=== PATIENT | female | born 1965 | race Caucasian/White ===

== ENCOUNTER 2016-09-24 14:17 | Emergency (ER) | payer OTHER ==
[2016-09-24 16:04] VITALS: BP 140/87
--- NOTE | 2016-09-24 16:22 | UC ---
Respiratory Complaint HPI - HPI Summary HPI Summary: pt presents with c/o nasal congestion, productive cough, SOB with exertion, sinus pressure, and left tear discomfort X 2 days. Pt states that she is exhausted and is unable to sleep due to coughing at night. - History of Current Complaint Chief Complaint: UCGeneralIllness Stated Complaint: COUGH,CONGESTION Time Seen by Provider: 09/24/16 15:52 Hx Obtained From: Patient ?: No Onset/Duration: Sudden Onset, Lasting Days Timing: Constant Severity Initially: Mild Severity Currently: Moderate Character: Sputum Description: - yellow/green Aggravating Factors: Exertion, Deep Breaths, Recumbent Position Alleviating Factors: Nothing Associated Signs And Symptoms: Positive: Chills, URI, Nasal Congestion - Allergies/Home Medications Allergies/Adverse Reactions: Allergies Allergy/AdvReac Type Severity Reaction Status Date / Time Azithromycin Allergy Intermediate Rash Verified 09/24/16 16:05 [From Zithromax Z-Armen] Penicillins Allergy Rash Verified 01/31/15 13:51 Home Medications: Home Medications Amlodipine Besylate-Atorvastat [Amlodipine Besylate/Atorv 2.5-40-] 1 PO DAILY [History] Cetirizine-Pseudoephedrine [Allergy D-12 5-120 mg] PO 09/24/16 [History] PMH/Surg Hx/FS Hx/Imm Hx Previously Healthy: Yes Cardiovascular History Of: Reports: Hypertension - Surgical History Surgical History: Yes Surgery Procedure, Year, and Place: Right hip replacement, R hip replacement revision 2013, partial thyroidectomy - Family History Known Family History: Positive: Other - positive [facility] for URI - Social History Lives: With Family Alcohol Use: None Substance Use Type: None Smoking Status (MU): Former Smoker - Immunization History Most Recent Influenza Vaccination: 2016 Review of Systems Constitutional: Chills, Fatigue Skin: Negative Eyes: Negative ENT: Ear Ache, Other - nasal congestion Respiratory: Cough Cardiovascular: Negative Gastrointestinal: Negative Genitourinary: Negative Motor: Negative Neurovascular: Negative Musculoskeletal: Myalgia Neurological: Negative Psychological: Negative All Other Systems Reviewed And Are Negative: Yes Physical Exam Triage Information Reviewed: Yes Appearance: Ill-Appearing Vital Signs: Initial Vital Signs Temp 97.7 F 09/24/16 15:56 Pulse 103 09/24/16 15:56 Resp 18 09/24/16 15:56 BP 140/87 04/30/17 15:56 Pulse Ox 99 09/24/16 15:56 Vital Signs Reviewed: Yes Eye Exam: Normal ENT Exam: Other ENT: Positive: Nasal congestion, TM bulging Neck exam: Normal Respiratory Exam: Other Respiratory: Positive: Decreased breath sounds - bilateral bases Cardiovascular Exam: Normal Musculoskeletal Exam: Normal Neurological Exam: Normal Psychological Exam: Normal Skin Exam: Normal UC Diagnostic Evaluation - Laboratory O2 Sat by Pulse Oximetry: 99 Respiratory Course/Dx - Differential Dx/Diagnosis Differential Diagnosis/HQI/PQRI: Bronchitis, Sinusitis, Other - allergic rhinitis Provider Diagnoses: bronchitis. allergic rhinitis Discharge - Discharge Plan Condition: Stable Disposition: HOME Prescriptions: Benzonatate CAP* [Tessalon 100 MG CAP*] 100 mg PO TID PRN #24 cap PRN Reason: Cough DOXYcycline CAP(*) [DOXYcycline 100MG CAP(*)] 100 mg PO BID #14 cap Fluticasone NASAL * [Flonase *] 2 spray BOTH NARES DAILY #1 bottle Patient Education Materials: Acute Bronchitis (ED), Allergic Rhinitis (ED) Referrals: Altaf Jones [Primary Care Provider] - If Needed (Please follow up with your PCP or return to clinic as needed) Additional Instructions: Please follow up with your PCP or return to clinic as needed.
== END 2016-09-24 16:35 | disposition home or self-care (01) ==
LOC: UCCORT 14:17
DX: J30.9 Allergic rhinitis, unspecified (principal); J40 Bronchitis, not specified as acute or chronic; Z88.1 Allergy status to other antibiotic agents; Z88.0 Allergy status to penicillin
CPT/HCPCS: 99211; G0463

== ENCOUNTER 2018-03-10 13:43 | Emergency (ER) | payer OTHER ==
[2018-03-10 15:35] VITALS: BP 154/90
[2018-03-10] MEDS ORDERED: Albuterol/Ipratropium NEB.SOL* Albuterol 2.5 MG/Ipratropium 0.5 MG 3 ML INH ONE (15:58)
[2018-03-10] MEDS ORDERED: predniSONE TAB* 20 MG PO ONE (15:59)
--- NOTE | 2018-03-10 16:40 | UC ---
Respiratory Complaint HPI - HPI Summary HPI Summary: patient takes immune succession medication for colitis---she has had symptoms of bronchitis for 10-14 days seen pcp and rx Doxycyline---that made her nauseated and could no tolerate the medications felt like she was getting a little better than worsened for the past 2-3 days---- - History of Current Complaint Chief Complaint: UCRespiratory Stated Complaint: CONGESTION COUGH SNEEZING HEADACHE Time Seen by Provider: 03/10/18 15:44 Hx Obtained From: Patient ?: No Onset/Duration: Gradual Onset, Lasting Days, Still Present Timing: Constant Severity Initially: Moderate Severity Currently: Moderate Character: Cough: Productive Aggravating Factors: Exertion, Deep Breaths, Recumbent Position Alleviating Factors: Nothing Associated Signs And Symptoms: Positive: Chills, Pleuritic Chest Pain, Nasal Congestion - Allergies/Home Medications Allergies/Adverse Reactions: Allergies Allergy/AdvReac Type Severity Reaction Status Date / Time azithromycin Allergy Intermediate Rash Verified 03/10/18 15:26 Penicillins Allergy Intermediate Rash Verified 03/10/18 15:26 Home Medications: Home Medications Mesalamine [Asacol Hd] 2 tab TID 03/10/18 [History Confirmed 03/10/18] amLODIPine TAB* [Norvasc 5 mg TAB*] 2.5 mg QPM 03/10/18 [History Confirmed 03/10] PMH/Surg Hx/FS Hx/Imm Hx Previously Healthy: No Cardiovascular History: Hypertension GI/ History: Other Other GI/ History: chronic colitis - Surgical History Surgical History: Yes Surgery Procedure, Year, and Place: Right hip replacement, R hip replacement revision 2014, partial thyroidectomy - Family History Known Family History: Positive: None, Other - positive [facility] for URI - Social History Occupation: Disabled Lives: With Family Alcohol Use: None Substance Use Type: None Smoking Status (MU): Former Smoker Have You Smoked in the Last Year: No When Did the Patient Quit Smoking/Using Tobacco: 8-9 years ago - Immunization History Most Recent Influenza Vaccination: 2016 Review of Systems Constitutional: Chills, Fatigue Skin: Negative Eyes: Negative ENT: Nasal Discharge, Sinus Congestion Respiratory: Cough Cardiovascular: Negative Gastrointestinal: Negative Genitourinary: Negative Motor: Negative Neurovascular: Negative Musculoskeletal: Negative Neurological: Negative Psychological: Negative Is Patient Immunocompromised?: No All Other Systems Reviewed And Are Negative: Yes Physical Exam Triage Information Reviewed: Yes Appearance: Well-Nourished, Ill-Appearing - mild-, Pain Distress - mild Vital Signs: Initial Vital Signs Temp 99.2 F 03/10/18 15:32 Pulse 89 03/10/18 15:32 Resp 18 03/10/18 15:32 BP 154/90 03/10/18 15:32 Pulse Ox 100 03/10/18 15:32 Vital Signs Reviewed: Yes Eye Exam: Normal Eyes: Positive: Conjunctiva Clear ENT Exam: Normal ENT: Positive: Normal ENT inspection, Hearing grossly normal, Nasal congestion, TMs normal, Uvula midline. Negative: Tonsillar swelling, Trismus, Muffled voice , Hoarse voice, Dental tenderness, Sinus tenderness Dental Exam: Normal Neck exam: Normal Neck: Positive: Supple, Nontender, No Lymphadenopathy Respiratory Exam: Normal Respiratory: Positive: Chest non-tender, Lungs clear, Normal breath sounds, No respiratory distress, No accessory muscle use Cardiovascular Exam: Normal Cardiovascular: Positive: RRR, No Murmur, Pulses Normal, Brisk Capillary Refill Musculoskeletal Exam: Normal Musculoskeletal: Positive: Strength Intact, ROM Intact, No Edema Neurological Exam: Normal Neurological: Positive: Alert, Muscle Tone Normal Psychological Exam: Normal Skin Exam: Normal UC Diagnostic Evaluation - Laboratory O2 Sat by Pulse Oximetry: 100 Respiratory Course/Dx - Course Course Of Treatment: prednisone, albuterol, levoquin (patient understands the black box warnings--she has taken it prior) increase fluids follow infection and elevated blood pressure with pcp in 2 weeks - Differential Dx/Diagnosis Provider Diagnoses: acute bronchitis in immune suppressed patient, hypertension in poor control Discharge - Sign-Out/Discharge Documenting (check all that apply): Patient Departure All imaging exams completed and their final reports reviewed: No Studies - Discharge Plan Condition: Stable Disposition: HOME Prescriptions: Albuterol 2.5MG/3ML (0.083%)* [Ventolin 2.5 MG/3 ML NEB.ADRIAN*] 2.5 mg INH Q4H PRN #1 box PRN Reason: cough, chest congestion Levofloxacin TAB* [Levaquin TAB*] 500 mg PO DAILY #7 tab predniSONE [Prednisone 20 MG TAB] 20 mg PO DAILY #9 tablet Patient Education Materials: Acute Bronchitis (ED), How to Use a Nebulizer (ED) , Hypertension (ED) Referrals: Altaf Jones [Primary Care Provider] - 2 Weeks - Billing Disposition and Condition Condition: STABLE Disposition: Home
== END 2018-03-10 16:47 | disposition home or self-care (01) ==
LOC: UCCORT 13:43
DX: J20.9 Acute bronchitis, unspecified (principal); D89.9 Disorder involving the immune mechanism, unspecified; I10 Essential (primary) hypertension; Z88.0 Allergy status to penicillin; Z88.1 Allergy status to other antibiotic agents; Z87.891 Personal history of nicotine dependence
CPT/HCPCS: 99212; A9270-GY; G0463; J7512

== ENCOUNTER 2018-05-26 11:48 | Emergency (ER) | payer OTHER ==
--- OUTSIDE RECORDS SUMMARY | 2018-05-26 12:59 | XMS REPORT ---
:1965 External Reference #:[id number] Author Organization [facility] Address [address], [address] [place] [address] Phone [phone] Care Team Providers Name Role Phone Severino Rosales NP Care Team Information Flare Stitcher Unavailable Severino oRsales NP Primary Care Physician Unavailable Payers Type Date Identification Numbers Payment Provider Subscriber Commercial Effective: Policy Number: [id number] [place] Medicaid Vicki Cain 2008 Reina PayID: [id number] [address] [address] [place] [address] Problems Date Description Provider Status Onset: 03/10/2013 Pure hypercholesterolemia Warren Bourne MD, PhD Active Onset: 01/25/2015 Adult health examination Kathryn Santoyo PA-C Active Note: [place] Onset: 01/25/2015 Ulcerative colitis Kathryn Sanotyo PA-C Active Note: since 1997; colonoscopy to cecum November 2014 bx badly tolerated with conscious sedation; internal and external hemorrhoids Onset: 01/25/2015 Irritable bowel syndrome Kathryn Santoyo PA-C Active Note: /D. Onset: 01/25/2015 Gastroesophageal reflux disease Kathryn Santoyo PA-C Active Note: upper endo 5 cm beyond Treitz, Bx 2011 Onset: 01/25/2015 Diverticular disease of colon Kathryn Santoyo PA-C Active Onset: 01/25/2015 Hyperlipidemia Kathryn Santoyo PA-C Active Onset: 01/25/2015 Degenerative joint disease Kathryn Santoyo PA-C Active involving multiple joints Onset: 01/25/2015 Obesity Kathryn Santoyo PA-C Active Onset: 01/26/2016 Benign essential hypertension Roger Villafana MD Active Onset: 08/04/2016 Other sleep disorders Esha Wild, Active MSN, [employer] Onset: 08/04/2016 Mitral valve disorder WildEsha mcdermott, Active MSN, [employer] Onset: 08/04/2016 Paroxysmal supraventricular Esha Wild, Active tachycardia MSN, [employer] Family History Date Family Member(s) Problem(s) Comments General Hypertension Mother General Atrial Fibrillation Mother Father due to Many health () - sepsis issues from surgery/bone problems Father Cancer Bone Mother Atrial Fibrillation First Brother due to Testicular () Cancer Onset: (age 26 First Brother Testicular Cancer Years) Grandfather Cancer bone Grandmother due to Colon () Cancer Grandmother Colon Cancer age 60 Social History Type Date Description Comments Marital Status Lives With Spouse Home Environment Ambulates With Cane Diet Patient follows no dietary restrictions Occupation Disabled Work Status Disabled ADL's/IADL's Independent with all ADL's Drive Patient does not drive Cigarette Use 2009 Quit ETOH Use Denies alcohol use Smoking Patient is a former smoker Recreational Drug Use Denies Drug Use Daily Caffeine Current Caffeine User Daily Caffeine Consumes on average 2 cups of hot tea per day Allergies, Adverse Reactions, Alerts Date Description Reaction Status Severity Comments 08/23/2011 Penicillins active 05/02/2013 Nabumetone active itching rash 01/27/2016 Azithromycin active itching Medications Medication Date Status Form Strength Qnty SIG Indications Ordering Provider Azathioprine 01/02/ Active Tablets 50mg 360tab 4 tabs by I10 Ledy 2016 s mouth once , nydia Duran MD Asacol HD 03/30/ Active Tablets DR 800mg 180tab take 2 Ledy 2014 s tablets by Roger mouth MD three times a day One Daily 00/00/ Active Tablets 50+ 1 po daily Unknown Womens 50+ 0000 Amlodipine / Active Tablets 2.5mg 90tabs 1 by mouth Neetu Keyes 0000 every MD Luis evening Ibuprofen / Active Tablets 600mg 1 po every Rosales, 0000 6 hrs prn XU Haq Fiber-Lax / Active Tablets 625mg 30tabs 1 by mouth Ledy 0000 every day , MD Roger Sulfamethoxazol / Active Tablets 800-160mg 1 po bid x Rosales, e/Trimethoprim 0000 10 days XU Haq DS Claritin / Active Capsules 10mg 1 by mouth Unknown 0000 twice a day Apriso 06/26/ Hx Caps ER 0.375gm 120cap 4 cap by Ledy 2018 24HR s mouth Roger every day every morning Omeprazole 01/02/ Hx Capsules 20mg 30caps 1 by mouth K21.9 Ledy 2016 every day Roger MD Mesalamine 01/02/ Hx Tablets DR 800mg 180tab 2 tablets I10 Ledy 2016 s 3 times Roger cain day MD Dulcolax 01/02/ Hx Tablets DR 5mg 4tabs 4 tablets Ledy 2016 taken a Roger 8pm the MD day before the procedure Citroma 01/02/ Hx Solution 1.745GM/30 296ml drink 1 Ledy 2017 ML bottle at Roger 12pm (noon)the day before the procedure Peg-3350/Electr 01/26/ Hx Solution 236gm 4000ml drink half I10 Ledy olytes 2015 Rec bottle 4pm , Roger half bottle 4am Omeprazole / Hx Capsules 40mg 90caps 1 by mouth Ledy Mackey DR every day Roger 01/02/ 2016 Omeprazole 01/26/ Hx Capsules 20mg 180cap 1 PO twice Abran Avilez DR s a day Jt / (before a 2015 meal) Fiber 01/26/ Hx Tablets 625mg 90tabs 1 PO daily Abran Avilez MD Omeprazole 01/05/ Hx Capsules 20mg 30caps once a day Abran Avilez DR (before a Jt meal) 2014 Nabumetone 04/18/ Hx Tablets 750mg 60tabs take 1 Evelio, 2012 - tablet by Audi Ramirez, 05/02/ mouth 2 , MAGDALENE 2013 times a day with food Amitriptyline / Hx Tablets 10mg 1 po qd Unknown HCL 2012 Multivitamins / Hx Tablets 1 po qd Unknown 2012 Sulfasalazine / Hx Tablets 500mg 1 po tid Unknown 2012 Meloxicam / Hx Tablets 15mg 1 po qd Unknown 2012 Omeprazole / Hx Capsules 20mg 30caps 1 cap po Natanael, 0000 - DR qd Kathryn 01/05/ Yadira 2014 PA-C Fiber-Lax / Hx Tablets 625mg 2 po qd Unknown - 2014 Daily Adam / Hx Tablets Unknown 0000 Cetirizine HCL / Hx Tablets 10mg 1 po qd Unknown - 2014 Asacol HD / Hx Tablets DR 800mg 180tab 2 tabs by Raghav 0000 - s mouth Jt, 03/30/ every day MD Osullivan Allergy / Hx Tablets 10mg 1 tab po Unknown 0000 qd Claritin / Hx Tablets 5-120mg 1 by mouth Unknown 0000 twice a day Azathioprine / Hx Tablets 50mg 360tab 4 tabs by Ledy 0000 s mouth once , Roger, daily Zyrtec Allergy / Hx Tablets 10mg 1 tab by Unknown D 0000 - mouth bid 2017 Vital Signs Date Vital Result Comment 04/30/2018 BP Systolic Sitting Left Arm 144 mmHg BP Diastolic Sitting Left Arm 88 mmHg Heart Rate 100 /min Respiratory Rate 18 /min Height 67 inches 5'7" Weight 180.00 lb BMI (Body Mass Index) 28.2 kg/m2 BSA (Body Surface Area) 1.93 m2 Oden body weight in kilograms 61 11/14/2017 BP Systolic Sitting Right Arm 128 mmHg BP Diastolic Sitting Right Arm 70 mmHg BP Systolic Sitting Left Arm 124 mmHg BP Diastolic Sitting Left Arm 68 mmHg Heart Rate 93 /min Respiratory Rate 16 /min Height 67 inches 5'7" Weight 180.00 lb BMI (Body Mass Index) 28.2 kg/m2 BSA (Body Surface Area) 1.93 m2 Oden body weight in kilograms 61 O2 % BldC Oximetry 97 % Room air 02/26/2017 BP Systolic Sitting Left Arm 146 mmHg BP Diastolic Sitting Left Arm 102 mmHg Heart Rate 72 /min Respiratory Rate 16 /min Height 67 inches 5'7" Weight 180.00 lb BMI (Body Mass Index) 28.2 kg/m2 BSA (Body Surface Area) 1.93 m2 Oden body weight in kilograms 61 02/20/2017 BP Systolic Sitting Left Arm 130 mmHg BP Diastolic Sitting Left Arm 86 mmHg Heart Rate 104 /min Respiratory Rate 16 /min Height 67 inches 5'7" Weight 180.00 lb BMI (Body Mass Index) 28.2 kg/m2 BSA (Body Surface Area) 1.93 m2 Oden body weight in kilograms 61 01/02/2017 BP Systolic Sitting Left Arm 140 mmHg BP Diastolic Sitting Left Arm 70 mmHg Heart Rate 100 /min Respiratory Rate 16 /min Height 67 inches 5'7" Weight 182.00 lb BMI (Body Mass Index) 28.5 kg/m2 BSA (Body Surface Area) 1.94 m2 Oden body weight in kilograms 61 08/04/2016 BP Systolic Sitting Right Arm 128 mmHg BP Diastolic Sitting Right Arm 78 mmHg Heart Rate 80 /min Respiratory Rate 16 /min Height 67 inches 5'7" Weight 179.00 lb BMI (Body Mass Index) 28.0 kg/m2 BSA (Body Surface Area) 1.93 m2 06/14/2016 BP Systolic Sitting Right Arm 150 mmHg BP Diastolic Sitting Right Arm 98 mmHg Heart Rate 81 /min Height 67 inches 5'7" Weight 181.00 lb BMI (Body Mass Index) 28.3 kg/m2 BSA (Body Surface Area) 1.94 m2 01/27/2016 BP Systolic 176 mmHg BP Diastolic 102 mmHg Heart Rate 80 /min Height 67 inches 5'7" Weight 178.00 lb BMI (Body Mass Index) 27.9 kg/m2 BSA (Body Surface Area) 1.92 m2 01/26/2015 BP Systolic 132 mmHg BP Diastolic 86 mmHg Heart Rate 68 /min Height 67 inches 5'7" Weight 196.00 lb BMI (Body Mass Index) 30.7 kg/m2 BSA (Body Surface Area) 2.00 m2 05/02/2013 BP Systolic Sitting Left Arm 138 mmHg BP Diastolic Sitting Left Arm 100 mmHg Height 67 inches 5'7" Weight 207.00 lb BMI (Body Mass Index) 32.4 kg/m2 BSA (Body Surface Area) 2.05 m2 03/13/2013 BP Systolic Sitting Right Arm 142 mmHg BP Diastolic Sitting Right Arm 98 mmHg Heart Rate 88 /min Respiratory Rate 16 /min Height 66 inches 5'6" Weight 211.00 lb BMI (Body Mass Index) 34.1 kg/m2 BSA (Body Surface Area) 2.05 m2 09/06/2011 BP Systolic Sitting Right Arm 152 mmHg BP Diastolic Sitting Right Arm 99 mmHg Heart Rate 101 /min Respiratory Rate 22 /min Height 66 inches 5'6" Weight 210.00 lb BMI (Body Mass Index) 33.9 kg/m2 Results Test Date Test Result H/L Range Note CBC W/Automated Diff 04/22/2018 White Blood Count 3.6 K/uL 3.1-10.7 1 Red Blood Count 4.35 M/uL 3.90-5.40 1 Hemoglobin 14.0 gm/dL 11.6-15.8 1 Hematocrit 42.9 % 36.0-46.1 1 Mean Cell Volume 98.6 fl 80.9-99.0 1 Mean Corpuscular HGB 32.2 pg 25.9-32.7 1 Mean Corpuscular HGB Conc 32.6 g/dL 30.8-34.3 1 Platelet Count 327 K/uL 155-360 1 Red Cell Distri Width SD 48.9 fl High 3-47 1 Red Cell Distri Width %CV 13.8 % 11.7-14.4 1 Mean Platelet Volume 10.2 fL 8.9-12.4 1 Neut% 68.0 % 40.4-72.8 1 Lymph % 18.3 % Low 20.0-42.0 1 [place] % 9.0 % 4.3-13.2 1 Eo% 3.9 % 0.0-6.6 1 Bas% 0.8 % 0.0-1.1 1 Neut# 2.42 K/uL 1.8-7.0 1 Lymph # 0.65 K/uL Low 1.0-4.0 1 [place] # 0.32 K/uL 0.3-0.9 1 Eos # 0.14 K/uL 0.0-0.5 1 Baso # 0.03 K/uL 0.0-0.1 1 Comprehensive Metabolic Panel 04/22/2018 Glucose 95 mg/dL 74-106 1 BUN 12 mg/dL 7-18 1 Creatinine 0.8 mg/dL 0.6-1.3 1 Glom Filtration Rate, Estimate >60 mL/min >60 1 If >60 mL/min >60 1, 2 BUN/Creat 15.0 ratio 1 Sodium 139 mmol/L 136-145 1 Potassium 3.8 mmol/L 3.5-5.1 1 Chloride 103 mmol/L 98-107 1 Carbon Dioxide 31 mmol/L 21-32 1 Anion Gap 5 mEq/L Low 8-16 1 Calcium 9.3 mg/dL 8.5-10.1 1 Total Protein 8.2 g/dL 6.4-8.2 1 Albumin 3.6 g/dL 3.4-5.0 1 Globulin 4.6 g/dL High 1.9-4.3 1 Alb/Glob 0.8 ratio 1 Bilirubin,Total 0.5 mg/dL 0.2-1.0 1 Sgot/Ast 17 U/L 15-37 1 SGPT/Alt 21 U/L 12-78 1 Alkaline Phosphatase 82 U/L 45-117 1 Laboratory test finding 04/22/2018 Lipase 127 U/L 56-289 1 Laboratory test finding 09/21/2017 Lipase 116 U/L 56-289 3 Amylase 55 U/L 25-115 3 Laboratory test finding 02/23/2017 Thyroid Stim Hormone 2.61 uIU/mL 0.30- 4.20 4 Free T4 1.08 ng/dL 0.76-1.46 4 Laboratory test finding 02/23/2017 [facility] IBD sgi (SEE NOTE) 5 Diagnostic Laboratory test finding 01/04/2017 Calprotectin, Fecal 18 ug/g 0-120 6, 7 Laboratory test finding 01/02/2017 Sedimentation Rate 29 mm/hr 0-30 6, 8 C-Reactive Protein,Cardiac 1.61 mg/L <3.0 6 Calprotectin, Fecal <pending> 6 Amylase 67 U/L 25-115 6 Lipase 166 U/L 73-393 6 Inflammatory Bowel Disease 01/02/2017 Atypical pANCA <1:20 titer Neg:<1: 20 6, 9 Saccharomyces cerevisiae, IgG < 20.0 units 0.0-24.9 6, 10 Saccharomyces cerevisiae, IgA < 20.0 units 0.0-24.9 6, 11 Nocturnal Oximetry 06/20/2016 Low Oximetry 77 % Low 93-98 12 Fio2 21 21-100 12 Heart Rate 96 BPM 12 Duration Of Study 378 MINUTES 12 Total Time Below 88% 33.5 MINUTES 12 Continuous Oximetry 06/19/2016 Oximetry 96 % 93-98 12 Fio2 21 21-100 12 Heart Rate 100 BPM 12 Patient Status RESTING 12 CMP Panel (14 Test) 01/28/2016 Glucose 88 mg/dL 74-106 13 BUN 12 mg/dL 7-18 13 Creatinine 0.7 mg/dL 0.6-1.3 13 Glom Filtration Rate, Estimate >60 mL/min >60 13 If >60 mL/min >60 13, 14 BUN/Creat 17.1 ratio 13 Sodium 139 mmol/L 136-145 13 Potassium 3.7 mmol/L 3.5-5.1 13 Chloride 106 mmol/L 98-107 13 Carbon Dioxide 27 mmol/L 21-32 13 Anion Gap 6 mEq/L Low 8-16 13 Calcium 9.0 mg/dL 8.5-10.1 13 Total Protein 7.6 g/dL 6.4-8.2 13 Albumin 3.7 g/dL 3.4-5.0 13 Globulin 3.9 g/dL 1.9-4.3 13 Alb/Glob 0.9 ratio 13 Bilirubin,Total 0.4 mg/dL 0.2-1.0 13 Sgot/Ast 16 U/L 15-37 13 SGPT/Alt 17 U/L 12-78 13 Alkaline Phosphatase 75 U/L 45-117 13 @[facility] Pat Id: [id number] 13 @[facility] Req #: [id number] 13 Is Patient Fasting? Non-Fasting 13 CBC W/Auto Diff & PLT 01/28/2016 White Blood Count 3.9 K/uL 3.1-10.7 13 Red Blood Count 4.09 M/uL 3.90-5.40 13 Hemoglobin 13.4 gm/dL 11.6-15.8 13 Hematocrit 39.5 % 36.0-46.1 13 Mean Cell Volume 96.6 fl 80.9-99.0 13 Mean Corpuscular HGB 32.8 pg High 25.9-32.7 13 Mean Corpuscular HGB Conc 33.9 g/dL 30.8-34.3 13 Platelet Count 248 K/uL 155-360 13 Red Cell Distri Width SD 48.0 fl High 3-47 13 Red Cell Distri Width %CV 14.0 % 11.7-14.4 13 Mean Platelet Volume 10.8 fL 8.9-12.4 13 Neut% 61.1 % 40.4-72.8 13 Lymph % 20.1 % 17.0-46.1 13 [place] % 9.3 % 4.3-13.2 13 Eo% 8.5 % High 0.0-6.6 13 Bas% 1.0 % 0.0-1.1 13 Neut# 2.38 K/uL 1.8-7.0 13 Lymph # 0.78 K/uL Low 1.8-7.0 13 [place] # 0.36 K/uL 0.3-0.9 13 Eos # 0.33 K/uL 0.0-0.5 13 Baso # 0.04 K/uL 0.0-0.1 13 @[facility] Pat Id: [id number] 13 @[facility] Req #: [id number] 13 Amylase 01/28/2016 Amylase 64 U/L 25-115 13 @[facility] Pat Id: [id number] 13 @[facility] Req #: [id number] 13 Is Patient Fasting? Non-Fasting 13 Lipase 01/28/2016 Lipase 136 U/L 73-393 13 @[facility] Pat Id: [id number] 13 @[facility] Req #: [id number] 13 Is Patient Fasting? Non-Fasting 13 Antineutrophil Cytoplasmic 01/28/2016 Cytoplasmic (C-Anca) <1:20 titer Neg:<1:20 13 AB Perinuclear (P-Anca) <1:20 titer Neg:<1:20 13, 15 Atypical pANCA <1:20 titer Neg:<1:20 13, 16 @[facility] Pat Id: [id number] 13 @[facility] Req #: [id number] 13 Saccharomyces 01/28/2016 Saccharomyces < 20.0 units 0.0-24.9 13, 17 Cerevisiae Panel cerevisiae, IgG Saccharomyces cerevisiae, IgA < 20.0 units 0.0-24.9 13, 18 @[facility] Pat Id: [id number] 13 @[facility] Req #: [id number] 13 CBS W/Automated Diff 03/22/2015 White Blood Count 3.7 K/uL 3.1-10.7 Red Blood Count 4.06 M/uL 3.90-5.40 Hemoglobin 13.5 gm/dL 11.6-15.8 Hematocrit 39.4 % 36.0-46.1 Mean Cell Volume 97.0 fl 80.9-99.0 Mean Corpuscular HGB 33.3 pg High 25.9-32.7 Mean Corpuscular HGB Conc 34.3 g/dL 30.8-34.3 Platelet Count 257 K/uL 155-360 Red Cell Distri Width SD 46.5 fl 3-47 Red Cell Distri Width %CV 13.6 % 11.7-14.4 Mean Platelet Volume 10.9 fL 8.9-12.4 Neut% 56.6 % 40.4-72.8 Lymph % 22.5 % 17.0-46.1 [place] % 8.4 % 4.3-13.2 Eo% 11.1 % High 0.0-6.6 Bas% 1.4 % High 0.0-1.1 Neut# 2.09 K/uL 1.0-7.0 Lymph # 0.83 K/uL Low 1.8-7.0 [place] # 0.31 K/uL 0.3-0.9 Eos # 0.41 K/uL 0.0-0.5 Baso # 0.05 K/uL 0.0-0.1 Comprehensive Metabolic Panel 03/22/2015 Glucose 97 mg/dL 74-106 BUN 12 mg/dL 7-18 Creatinine 0.7 mg/dL 0.6-1.3 Glom Filtration Rate, Estimate >60 mL/min >60 If >60 mL/min >60 19 BUN/Creat 17.1 ratio Sodium 139 mmol/L 136-145 Potassium 3.6 mmol/L 3.5-5.1 Chloride 104 mmol/L 98-107 Carbon Dioxide 29 mmol/L 21-32 Anion Gap 6 mEq/L Low 8-16 Calcium 9.6 mg/dL 8.5-10.1 Total Protein 7.6 g/dL 6.4-8.2 Albumin 3.8 g/dL 3.4-5.0 Globulin 3.8 g/dL 1.9-4.3 Alb/Glob 1.0 ratio Bilirubin,Total 0.4 mg/dL 0.2-1.0 Sgot/Ast 18 U/L 15-37 SGPT/Alt 25 U/L 12-78 Alkaline Phosphatase 84 U/L 45-117 Comprehensive Metabolic Panel 01/05/2015 Glucose 100 mg/dL 74-106 BUN 8 mg/dL 7-18 Creatinine 0.7 mg/dL 0.6-1.3 Glom Filtration Rate, Estimate >60 mL/min >60 If >60 mL/min >60 20 BUN/Creat 11.4 ratio Sodium 140 mmol/L 136-145 Potassium 3.6 mmol/L 3.5-5.1 Chloride 106 mmol/L 98-107 Carbon Dioxide 31 mmol/L 21-32 Anion Gap 3 mEq/L Low 8-16 Calcium 9.2 mg/dL 8.5-10.1 Total Protein 7.3 g/dL 6.4-8.2 Albumin 3.4 g/dL 3.4-5.0 Globulin 3.9 g/dL 1.9-4.3 Alb/Glob 0.9 ratio Bilirubin,Total 0.4 mg/dL 0.2-1.0 Sgot/Ast 17 U/L 15-37 SGPT/Alt 24 U/L 12-78 Alkaline Phosphatase 74 U/L 45-117 CBC 12/30/2014 White Blood Count 3.9 K/uL 3.1-10.7 Red Blood Count 4.10 M/uL 3.90-5.40 Hemoglobin 13.4 gm/dL 11.6-15.8 Hematocrit 38.9 % 36.0-46.1 Mean Cell Volume 94.9 fl 80.9-99.0 Mean Corpuscular HGB 32.7 pg 25.9-32.7 Mean Corpuscular HGB Conc 34.4 g/dL High 30.8-34.3 Platelet Count 239 K/uL 155-360 Red Cell Distri Width %CV 13.4 % 11.7-14.4 Mean Platelet Volume 11.0 fL 8.9-12.4 Laboratory test finding 12/30/2014 Comprehensive Metabolic Canceled By Lab 21 Panel 1 SCREENING,K51.9O 2 Note: Persistent reduction for 3 months or more in an eGFR <60 mL/min/1.73 m2 defines CKD. Patients with eGFR values >/=60 mL/min/1.73 m2 may also have CKD if evidence of persistent proteinuria is present. The original MDRD equation for estimated GFR is not valid for patients less than 18 years of age. Additional information may be found at www.kdoqi.org. 3 K51.90 4 K51.90, E04.1, E07.9 5 MANUAL REPORT RECEIVED 03/09/17 Performed at: [facility] [id number] Forepart Rounder: Jessica Alfaro MD, Phone: [phone] 6 M64.90 7 Concentration Interpretation Follow-Up <16 - 50 ug/g Normal None >50 -120 ug/g Borderline Re-evaluate in 4-6 weeks >120 ug/g Abnormal Repeat as clinically indicated Performed at: [address] [id number] Forepart Rounder: Regan Aragon MD, Phone: [phone] 8 Method: Sediplast Modified Westergren 9 The atypical pANCA pattern has been observed in a significant percentage of patients with ulcerative colitis, primary sclerosing cholangitis and autoimmune hepatitis. ASCA+/PANCA- Suggestive of Crohn's disease ASCA-/PANCA+ Suggestive of Ulcerative colitis 10 Negative <20.0 Equivocal 20.1 - 24.9 Positive >or=25.0 11 Negative <20.0 Equivocal 20.1 - 24.9 Positive >or=25.0 IgA and IgG antibody testing for S. cerevisiae is useful adjunct testing for differentiating Crohn's disease and ulcerative colitis. Close to 80% of Crohn's disease patients are positive for either IgA or IgG. In ulcerative colitis, less than 15% are positive for IgG and less than 2% are positive for IgA. Fewer than 5% are positive for either IgG or IgA antibody, and no healthy controls had antibody for both. Performed at: [address] [id number] Forepart Rounder: Regan Aragon MD, Phone: [phone] 12 R06.02 R00.2 13 K51.90 14 Note: Persistent reduction for 3 months or more in an eGFR <60 mL/min/1.73 m2 defines CKD. Patients with eGFR values >/=60 mL/min/1.73 m2 may also have CKD if evidence of persistent proteinuria is present. The original MDRD equation for estimated GFR is not valid for patients less than 18 years of age. Additional information may be found at www.kdoqi.org. 15 The presence of positive fluorescence exhibiting P-ANCA or C-ANCA patterns alone is not specific for the diagnosis of Soledad's Granulomatosis (WG) or microscopic polyangiitis. Decisions about treatment should not be based solely on ANCA IFA results. The International ANCA Group Consensus recommends follow up testing of positive sera with both RI- 3 and MPO-ANCA enzyme immunoassays. As many as 5% serum samples are positive only by EIA. Ref. AM J Clin Pathol 1999;111:507-513. 16 The atypical pANCA pattern has been observed in a significant percentage of patients with ulcerative colitis, primary sclerosing cholangitis and autoimmune hepatitis. 17 Negative <20.0 Equivocal 20.1 - 24.9 Positive >or=25.0 18 Negative <20.0 Equivocal 20.1 - 24.9 Positive >or=25.0 IgA and IgG antibody testing for S. cerevisiae is useful adjunct testing for differentiating Crohn's disease and ulcerative colitis. Close to 80% of Crohn's disease patients are positive for either IgA or IgG. In ulcerative colitis, less than 15% are positive for IgG and less than 2% are positive for IgA. Fewer than 5% are positive for either IgG or IgA antibody, and no healthy controls had antibody for both. Performed at: [facility] [id number] Forepart Rounder: Regan Aragon MD, Phone: [phone] 19 Note: Persistent reduction for 3 months or more in an eGFR <60 mL/min/1.73 m2 defines CKD. Patients with eGFR values >/=60 mL/min/1.73 m2 may also have CKD if evidence of persistent proteinuria is present. The original MDRD equation for estimated GFR is not valid for patients less than 18 years of age. Additional information may be found at www.kdoqi.org. 20 Note: Persistent reduction for 3 months or more in an eGFR <60 mL/min/1.73 m2 defines CKD. Patients with eGFR values >/=60 mL/min/1.73 m2 may also have CKD if evidence of persistent proteinuria is present. The original MDRD equation for estimated GFR is not valid for patients less than 18 years of age. Additional information may be found at www.kdoqi.org. 21 QUERY: Is the Patient Fasting? N Procedures Date CPT Code Description Status Comment 11/14/2017 16734 EKG-Tracing And Report Completed 01/24/2017 Colonoscopy Completed Document: 01/24/17 - Pathology Final Report Document: 01/24/17 - Operative Report - Colon Document: 01/24/17 - Colonoscopy Pictures 01/24/2017 71832 Colonoscopy With Biopsy Completed 06/19/2016 10725 Echocardiogram Complete Completed 06/19/2016 33929 Event Monitor Inter/Review Completed Only 06/14/2016 32145 EKG-Tracing And Report Completed 12/21/2014 Colonoscopy Completed Document: 12/21/14 - Op Report - Colonoscopy 04/18/2013 62693 Radiology, Knee 3 Views Completed 04/18/2013 63116 Radiology, Knee 3 Views Completed 03/13/2013 13095 Stress Test Interpre And Completed Report Only 03/13/2013 63587 Stress Test Physician Super Completed Only 03/13/2013 99003 Stress Test Physician Super Completed Only 03/13/2013 94742 EKG-Tracing And Report Completed 03/13/2013 53020 Myocardial Imaging Completed Tomographic Multiple Study AT Rest Or Stress 12/11/2012 23277 Asp./Injection major joint Completed 07/31/2012 Colonoscopy Completed Document: 07/31/12 - Op Report - Colonoscopy 04/26/2012 76453 Echocardiogram Complete Completed 11/14/2010 Colonoscopy Completed Document: 11/14/10 - Op Report - Colonoscopy 09/28/201034664 Asp./Injection major joint Completed 09/03/2008 94496 Total Hip Arthroplasty Completed acetabular & proximal femoral prosthetic Encounters Type Date Location Provider CPT E/M Dx Office Visit 04/30/2018 9:30[place] [address] K51.90 Z80.0 Office Visit 11/14/2017 2:00p [place] [address] I10 R00.2 R09.02 R53.83 Office Visit 02/26/2017 10:30a [place] [address] R00.2 I10 R09.02 Office Visit 02/20/2017 10:15[place] [address] K51.90 R14.1 Office Visit 01/02/2017 11:30[place] [address] Z80.0 K51.90 K21.9 Office Visit 08/04/2016 10:00a Cardiology Office Esha Wild 12531 G47.8 MSN, [employer] MERCHANT I47.1 I10 I34.0 Office Visit 06/14/2016 8:40a [place] [address] R00.2 R06.02 I10 Office Visit 01/27/2016 11:00[place] [address] K51.90 K58.0 Office Visit 01/26/2015 11:00a Kathryn Zamarripa PA-C 27259 556.9 564.1 530.81 562.10 Office Visit 09/16/2013 9:22a [place], [address] 786.50 PhD Office Visit 05/02/2013 8:30a [place] [address] 715.15 715.16 V43.64 719.46 724.2 Office Visit 04/18/2013 11:00a Orthopaedic Office Dottie Feldman, 13207 715.16 RPAC 715.15 V43.64 721.42 719.46 Office Visit 03/13/2013 10:00a [place] [address] 272.0 785.1 786.05 786.51 Office Visit 09/06/2011 10:30a Surgical Office Cristian Byrd, 14661 709.9 M.DJoshua Plan of Care Future Appointment(s):12/03/2018 1:00 pm - Roger Villafana MD at GI05/22/2018 10:00 am - Luis Keyes MD at Cardiology Febjrl2004/30/2018 - Roger Villafana MDK51.90 Ulcerative colitis, unspecified, without complicationsComments:renew medsdoing well December 2018 repeat colonoscopyFollow up:November 2018Z80.0 Family history of malignant neoplasm of digestive organs
[2018-05-26 13:27] VITALS: BP 162/100
--- NOTE | 2018-05-26 13:53 | UC ---
UC General HPI - HPI Summary HPI Summary: 2 DAY HX SORE THROAT, COUGH, CHEST CONGESTION AND WHEEZING. NO FEVER, CP, SOB OR CHRONIC LUNG DZ. IS ON IMMUNE SUPPRESSIVE MEDICATION. - History of Current Complaint Chief Complaint: UCRespiratory Stated Complaint: COUGH Time Seen by Provider: 05/26/18 13:22 Hx Obtained From: Patient Onset/Duration: Gradual Onset Timing: Constant Pain Intensity: 0 - Allergy/Home Medications Allergies/Adverse Reactions: Allergies Allergy/AdvReac Type Severity Reaction Status Date / Time azithromycin Allergy Intermediate Rash Verified 03/10/18 15:26 Penicillins Allergy Intermediate Rash Verified 05/26/18 13:27 Home Medications: Home Medications Loratadine [Claritin 10 MG CAP] 10 mg PO DAILY 05/26/18 [History Confirmed 05/26] PARoxetine HCL TAB* [Paxil TAB*] 10 mg PO DAILY 05/26/18 [History Confirmed ] PMH/Surg Hx/FS Hx/Imm Hx - Additional Past Medical History Additional PMH: IBS, ULCERATIVE COLITIS Cardiovascular History: Hypertension - Surgical History Surgical History: Yes Surgery Procedure, Year, and Place: Right hip replacement, R hip replacement revision 2013, partial thyroidectomy - Family History Known Family History: Positive: None, Other - positive FM for URI - Social History Alcohol Use: None Substance Use Type: None Smoking Status (MU): Former Smoker Amount Used/How Often: 1 ppd Length of Time of Smoking/Using Tobacco: 20 + yrs Have You Smoked in the Last Year: No When Did the Patient Quit Smoking/Using Tobacco: 2008 - Immunization History Most Recent Influenza Vaccination: 2016 Vaccination Up to Date: Yes Review of Systems All Other Systems Reviewed And Are Negative: Yes Constitutional: Positive: Negative Skin: Positive: Negative Eyes: Positive: Negative ENT: Positive: Sore Throat Respiratory: Positive: Cough Cardiovascular: Positive: Negative Gastrointestinal: Positive: Negative Genitourinary: Positive: Negative Motor: Positive: Negative Neurovascular: Positive: Negative Musculoskeletal: Positive: Negative Neurological: Positive: Negative Psychological: Positive: Negative Is Patient Immunocompromised?: Yes Physical Exam Triage Information Reviewed: Yes Appearance: Well-Appearing Vital Signs: Initial Vital Signs Temp 97.7 F 05/26/18 13:20 Pulse 89 05/26/18 13:20 Resp 16 05/26/18 13:20 BP 162/100 05/26/18 13:20 Pulse Ox 96 05/26/18 13:20 Eyes: Positive: Conjunctiva Clear ENT: Positive: Pharyngeal erythema, TMs normal. Negative: Nasal congestion, Nasal drainage Neck: Positive: Supple, Tenderness @ - PERITONSILAR NODES Respiratory: Positive: Lungs clear, No respiratory distress, Other: - Harsh congested cough. Cardiovascular: Positive: RRR, No Murmur Abdomen Description: Positive: Nontender, No Organomegaly, Soft Bowel Sounds: Positive: Present Musculoskeletal: Positive: ROM Intact Neurological: Positive: Alert Psychological: Positive: Normal Response To Family Skin Exam: Normal Diagnostics - Laboratory Diagnostic Studies Completed/Ordered: rapid strep=negative Course/Dx - Course Course Of Treatment: pt on chronic immune suppressing medications thus will cover for presumptive bacterial infection. - Differential Dx - Multi-Symptom Differential Diagnoses: Other - strep throat, bronchitis, pneumonia - Diagnoses Provider Diagnosis: Pharyngitis, Bronchitis Discharge - Sign-Out/Discharge Documenting (check all that apply): Patient Departure All imaging exams completed and their final reports reviewed: No - Discharge Plan Condition: Stable Disposition: HOME Prescriptions: DOXYcycline CAP(*) [DOXYcycline 100MG CAP(*)] 100 mg PO BID 10 Days #20 cap Patient Education Materials: Pharyngitis (ED), Acute Bronchitis (ED) Referrals: Altaf Jones [Primary Care Provider] - 7 Days - Billing Disposition and Condition Condition: STABLE Disposition: Home
--- NOTE | 2018-05-27 14:19 | UC ---
Course/Dx - Diagnoses Provider Diagnoses: Pharyngitis, Bronchitis Discharge - Sign-Out/Discharge Documenting (check all that apply): Patient Departure All imaging exams completed and their final reports reviewed: No Studies - Discharge Plan Condition: Stable Disposition: HOME Prescriptions: DOXYcycline CAP(*) [DOXYcycline 100MG CAP(*)] 100 mg PO BID 10 Days #20 cap Patient Education Materials: Pharyngitis (ED), Acute Bronchitis (ED) Referrals: Altaf Jones [Primary Care Provider] - 7 Days - Billing Disposition and Condition Condition: STABLE Disposition: Home
== END 2018-05-26 14:15 | disposition home or self-care (01) ==
LOC: UCCORT 11:48
DX: J02.9 Acute pharyngitis, unspecified (principal); J40 Bronchitis, not specified as acute or chronic; Z88.0 Allergy status to penicillin; Z88.1 Allergy status to other antibiotic agents; Z87.891 Personal history of nicotine dependence
CPT/HCPCS: 87651; 99212; G0463